=== PATIENT | female | born 1995 | race African-American/Black ===

== ENCOUNTER 2017-11-07 16:04 | Emergency (ER) | payer OTHER ==
[2017-11-07 16:10] VITALS: BP 121/67; PULSE 87; TEMP 98.9; BMI 34.9
--- NOTE | 2017-11-07 16:11 | PDOC ---
Rapid Medical Evaluation Chief Complaint: Headache Time Seen by Provider: 11/07/17 16:07 Medical Evaluation: 11/07/17 16:08 I have performed a brief in-person evaluation of this patient. The patient presents with a CC of: fever, MONTERO HPI: Pt is a 22 YO female who states that she woke up with a fever and MONTERO. 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 She describes it as a throb and rates it at a 6/10. Pertinent PE findings: Skin: Clear Heart:RRR Lungs: Clear MS: Moves all extremities without difficulty Neuro: alert and oriented Psych: Appropriate affect I have ordered the following: nothing ordered at this time. The patient will proceed to [facility] for further evaluation.
--- NOTE | 2017-11-07 16:52 | PDOC ---
History of Present Illness - General Chief Complaint: Headache Stated Complaint: HEADACHE Time Seen by Provider: 11/07/17 16:07 History Source: Patient Exam Limitations: No Limitations - History of Present Illness Initial Comments: 11/07/17 16:50 Came to ER for evaluation of upper respiratory infection. States son was recovering from coxsackie virus, and feels became ill due to his illness. Has had fevers, chills sore throat pain and upper respiratory congestion. Denies severe headache, but c/o frontal congestion 11/07/17 16:53 Timing/Duration: reports: other (2 days ) Severity: Yes: mild, moderate Associated Symptoms: reports: fever/chills Past History - Travel Traveled outside of the country in the last 30 days: No Close contact w/someone who was outside of country & ill: No - Past Medical History Allergies/Adverse Reactions: Allergies Allergy/AdvReac Type Severity Reaction Status Date / Time Sulfa (Sulfonamide Allergy Mild Hives Verified 11/07/17 16:10 Antibiotics) Home Medications: Ambulatory Orders NK [No Known Home Medication] 11/07/17 COPD: No - Suicide/Smoking/Psychosocial Hx Smoking History: Never smoked Have you smoked in the past 12 months: No Information on smoking cessation initiated: No Hx Alcohol Use: No Drug/Substance Use Hx: No Substance Use Type: None Review of Systems - Review of Systems Able to Perform ROS?: Yes Is the patient limited Norwegian proficient: Yes Constitutional: Yes: Symptoms Reported, See HPI, Fever, Malaise HEENTM: Yes: Symptoms Reported, See HPI, Nose Congestion Respiratory: Yes: Symptoms reported, See HPI, Cough Cardiac (ROS): No: Symptoms Reported : No: Symptoms Reported Integumentary: No: Symptoms Reported All Other Systems: Reviewed and Negative *Physical Exam - Vital Signs Last Vital Signs Temp Pulse Resp BP Pulse Ox 98.9 F 87 17 121/67 100 11/07/17 16:08 11/07/17 16:08 11/07/17 16:08 11/07/17 16:08 11/07/17 16:08 - Physical Exam General Appearance: Yes: Nourished, Appropriately Dressed, Apparent Distress HEENT: positive: LUIS, Normal ENT Inspection, TMs Normal, Pharynx Normal (mild erythema, but no ulcerations noted, some postnasal drainage), Nasal Congestion, Rhinorrhea, Sinus Tenderness Neck: positive: Supple. 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 NML intact, Fully Oriented, Alert, Normal Mood/ Affect, Normal Response, Motor Strength 5/5 Progress Note - Progress Note Progress Note: Upper respiratory infection, mild *DC/Admit/Observation/Transfer Diagnosis at time of Disposition: Upper respiratory infection, acute - Discharge Dispostion Disposition: HOME Condition at time of disposition: Stable Decision to Admit order: No - Referrals Referrals: Enedelia Caraballo [Primary Care Provider] - - Patient Instructions Printed Discharge Instructions: DI for Viral Upper Respiratory Infection -- Adult Additional Instructions: Rest, drink lots of fluids: Teas, water, soups, Pedialyte Saltwater gargles Steamy showers/seem to face break up mucus Avoid contact with others until fevers and cough resolved Lots of handwashing and good hygiene Continue [id number] medications for symptomatic relief Tylenol or Motrin for fever and pain Followup with private physician in one to 2 days as needed Return to emergency department for worsened symptoms, fevers, dehydration - Post Discharge Activity Forms/Work/School Notes: Back to Work
[2017-11-07] MEDS ORDERED: IBUPROFEN 400 MG TABLET (FP) PO ONE ×2 (16:57→17:01)
== END 2017-11-07 17:51 | disposition home or self-care (01) ==
LOC: JERFT 16:04
DX: J11.1 Influenza due to unidentified influenza virus with other respiratory manifestations (principal)
CPT/HCPCS: 84703; 99281-25

== ENCOUNTER 2018-06-24 19:57 | Emergency (ER) | payer OTHER ==
[2018-06-24 20:19] VITALS: BP 114/72; PULSE 70; TEMP 98.5; BMI 34.7
--- NOTE | 2018-06-24 20:54 | PDOC ---
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 Pt LMP 05/16/2018, has had irregular bleeding in between cycles, followed by OB and started on OCPs , after biopsy on 06/13 has had 2 vaginal bleeding . Vaginal bleeding continued and states today after removing a tampon she noted excessive discharge that was thick attached to the end of it. Pt also admits to bilateral lower quadrant crampy abdominal pain that began today. Denies hx STDs, vaginal pain/burning/ itching, changes in bowel or bladder habits, F/C/N/V. Past History - Past Medical History Allergies/Adverse Reactions: Allergies Allergy/AdvReac Type Severity Reaction Status Date / Time Sulfa (Sulfonamide Allergy Mild Hives Verified 11/07/17 16:10 Antibiotics) Home Medications: Ambulatory Orders NK [No Known Home Medication] 11/07/17 COPD: No Disorders: Yes (HPV w/ cervical bx 06/13/18) - Surgical History Abdominal Surgery: No Appendectomy: No Cardiac Surgery: No Cholecystectomy: No Gastric Stapling: No GI Surgery: No - Suicide/Smoking/Psychosocial Hx Smoking History: Never smoked Have you smoked in the past 12 months: No Information on smoking cessation initiated: No Hx Alcohol Use: No Drug/Substance Use Hx: No Substance Use Type: None Review of Systems - Review of Systems Constitutional: No: Chills, Fever, Weakness HEENTM: No: Blurred Vision, Double Vision Respiratory: No: Shortness of Breath, Wheezing Cardiac (ROS): No: Chest Pain ABD/GI: Yes: Abdominal cramping. No: Constipated, Diarrhea, Nausea, Vomiting : Yes: Discharge (vaginal ). No: Burning, Dysuria, Frequency, Flank Pain Musculoskeletal: No: Back Pain, Muscle Weakness Integumentary: No: Change in Color Neurological: No: Headache, Numbness, Paresthesia, Weakness *Physical Exam - Vital Signs Last Vital Signs Temp Pulse Resp BP Pulse Ox 98.5 F 70 20 114/72 100 06/24/18 20:12 06/24/18 20:12 06/24/18 20:12 06/24/18 20:12 06/24/18 20:12 - Physical Exam General Appearance: Yes: Nourished, Appropriately Dressed. No: Apparent Distress HEENT: positive: EOMI, LUIS Neck: positive: Supple. negative: Carotid bruit Respiratory/Chest: positive: Lungs Clear, Normal Breath Sounds. negative: Respiratory Distress, Crackles, Rales, Rhonchi, Stridor, Wheezing Cardiovascular: positive: Regular Rhythm, Regular Rate, S1, S2. negative: Edema , JVD, Murmur Vascular Pulses: Dorsalis-Pedis (R): 3+, Doralis-Pedis (L): 3+ Female Pelvic Exam: positive: normal external exam, cervical os closed, normal adnexa, normal size ovaries, discharge (bloody). negative: CMT, adnexal tenderness Gastrointestinal/Abdominal: positive: Flat, Soft, Tenderness (distractable bilateral lower quadrant). negative: Pulsatile Mass, Distended, Guarding, Rebound Musculoskeletal: positive: Normal Inspection. negative: CVA Tenderness Extremity: positive: Normal Capillary Refill, Normal Inspection, Normal Range of Motion, Pelvis Stable Integumentary: positive: Normal Color, Dry, Warm. negative: Cyanotic Neurologic: positive: Fully Oriented, Alert, Normal Mood/Affect ED Treatment Course - LABORATORY CBC & Chemistry Diagram: 06/24/18 21:06 06/24/18 21:06 Medical Decision Making - Medical Decision Making 06/24/18 22:02 Pt was told by [employer] Stephen to come to clinic tmr at 8 30 am for appointment and will also discuss HPV results. Pt comfortable, NAD, non toxic appearing CBC WNL, no anemia CMP WNL UA WNL Urine culture and gc/chlam pending, pt will receive call for ab values *DC/Admit/Observation/Transfer Diagnosis at time of Disposition: Vaginal bleeding - Discharge Dispostion Disposition: HOME Condition at time of disposition: Stable Decision to Admit order: No - Referrals - Patient Instructions Printed Discharge Instructions: DI for Vaginal Bleeding, DI for Vaginal Discharge Additional Instructions: Please see your OB Dr. Mitchell at 8 30 am tomorrow. Continue taking your oral contraceptives as prescribed. Return to the ER for new or concerning symptoms including but not limited to: high fevers, severe abdominal pain, prolonged vaginal bleeding, weakness or profound lethargy. Thank you - Post Discharge Activity Forms/Work/School Notes: Back to Work
[2018-06-24 21:12] LABS: BASO % 0.3 % (0-2.0); EOS % 1.7 % (0-4.5); HEMATOCRIT 37.8 % (32.4-45.2); HEMOGLOBIN 12.6 GM/dL (10.7-15.3); LYMPH % 35.9 % (8-40); MCH 29.5 pg (25.7-33.7); MCHC 33.2 g/dl (32.0-36.0); MEAN CELL VOLUME 88.8 fl (80-96); MEAN PLT VOLUME 9.2 fl (7.5-11.1); MONO % 8.8 % (3.8-10.2); NEUT % 53.3 % (42.8-82.8); PLATELET COUNT 218 K/MM3 (134-434); RBC 4.26 M/mm3 (3.60-5.2); RDW 14.4 % (11.6-15.6); WHITE BLOOD COUNT 6.2 K/mm3 (4.0-10.0)
[2018-06-24 21:39] LABS: ALBUMIN 3.3 g/dl (3.4-5.0); ALK PHOS 59 U/L (45-117); ANION GAP 6 MMOL/L (8-16); BILIRUBIN,TOTAL 0.2 mg/dL (0.2-1); BLOOD UREA NITROGEN 9 mg/dL (7-18); CALCIUM 8.6 mg/dL (8.5-10.1); CHLORIDE 107 mmol/L (98-107); CO2 26 mmol/L (21-32); CREATININE 0.8 mg/dL (0.55-1.3); GLUCOSE,RANDOM 85 mg/dL (74-106); POTASSIUM 3.8 mmol/L (3.5-5.1); SGOT/AST 13 U/L (15-37); SGPT/ALT 23 U/L (13-61); SODIUM 139 mmol/L (136-145); TOT PROT 6.7 g/dl (6.4-8.2)
[2018-06-24 21:51] LABS: EPI CELLS 5.1 /HPF (0-5/HPF); HCG,QUALITATIVE URINE Negative; URINE APPEARANCE CLEAR; URINE BACTERIA 154.5 /hpf (NEGATIVE); URINE BILIRUBIN NEGATIVE (NEGATIVE); URINE CASTS 6 /lpf (0-8); URINE COLOR YELLOW; URINE GLUCOSE (UA) NEGATIVE (NEGATIVE); URINE KETONE 2+ (NEGATIVE); URINE LEUK ESTERASE TRACE (NEGATIVE); URINE NITRITE NEGATIVE (NEGATIVE); URINE PROTEIN TRACE (NEGATIVE); URINE RBC 65 /hpf (0-4); URINE WBC 5 /hpf (0-5)
--- NOTE | 2018-06-24 22:35 | PDOC ---
Documentation entered by Mary Ann Ennis SCRIBE, acting as scribe for Julienne Blood MD. Julienne Blood MD: This documentation has been prepared by the Raymon lund Daisy, SCRIBE, under my direction and personally reviewed by me in its entirety. I confirm that the documentation accurately reflects all work, treatment, procedures, and medical decision making performed by me. Attending Attestation - Resident Resident Name: Malcolm Sánchez - ED Attending Attestation I have performed the following: I have examined & evaluated the patient, The case was reviewed & discussed with the resident, I agree w/resident's findings & plan - HPI HPI: 06/24/18 21:01 The patient is a 23 YOF with a PMH of ectopic years ago, which was treated surgically, who presents to the ER for vaginal bleeding since 06/13. LMP was in late April and reports having consistent vaginal bleeding since. 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 The PATTERN CHAIN MAKER SUPERVISOR also did a biopsy, which came back positive for HPV. Patient states the vaginal bleeding has been persistent and used a tampon today. She reports that when she removed the tampon, she noticed a large clot. She also admits to abdominal cramping. Denies N/V/D/C, or urinary symptoms. Allergies: Sulfa - Physicial Exam PE: 06/24/18 22:29 wnwd 23 yo female p/w vaginal bleeding head ncat neck supple lungs cta b/l cvs [id number] abd no rebound,no guarding skin warm and dry no cva tenderness pelvic - done by Dr Sánchez, small clot in vaginal vault neuro axox3,ambulatory - Medical Decision Making 06/24/18 21:21 Vaginal bleeding plan cbc ,preg test 06/24/18 22:32 negative test no anemia pt d/c home
== END 2018-06-24 22:31 | disposition home or self-care (01) ==
LOC: JER 19:57
DX: N93.8 Other specified abnormal uterine and vaginal bleeding (principal); A63.0 Anogenital (venereal) warts; Z22.4 Carrier of infections with a predominantly sexual mode of transmission
CPT/HCPCS: 36415; 80053; 81003; 84703; 85025; 87086; 87491; 87591; 99283-25

== ENCOUNTER 2019-01-29 19:28 | Emergency (ER) | payer OTHER ==
[2019-01-29 19:46] VITALS: BP 119/78; PULSE 74; TEMP 97.5; BMI 33.3
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
== END 2019-01-29 20:42 | disposition home or self-care (01) ==
LOC: JERFT 19:28
DX: M54.6 Pain in thoracic spine (principal); V43.52XA Car driver injured in collision with other type car in traffic accident, initial encounter; Y92.414 Local residential or business street as the place of occurrence of the external cause; Y93.89 Activity, other specified; Y99.8 Other external cause status; Z88.2 Allergy status to sulfonamides
CPT/HCPCS: 99281-25

== ENCOUNTER 2021-11-21 00:36 | Emergency (ER) | payer OTHER ==
[2021-11-21 00:54] VITALS: BP 124/88; PULSE 78; RESP 16; TEMP 98.6; BMI 32.9
[2021-11-21] MEDS ORDERED: ONDANSETRON 4 MG/2 ML VIAL IVPUSH ONE (01:13)
[2021-11-21] MEDS ORDERED: SODIUM CHLORIDE 0.9% 500 ML INFUS.BAG IV ONE (01:13)
[2021-11-21] MEDS ORDERED: FAMOTIDINE 20 MG/50 ML IVPB 20 MG/50 ML MG IVPB ONE ×2 (01:13→01:35)
[2021-11-21 01:16] LABS: PH,URINE >= 9.0 (5.0-8.0); URINE APPEARANCE CLEAR; URINE BILIRUBIN NEGATIVE (NEGATIVE); URINE COLOR YELLOW; URINE GLUCOSE (UA) NEGATIVE (NEGATIVE); URINE KETONE NEGATIVE (NEGATIVE); URINE LEUK ESTERASE NEGATIVE (NEGATIVE); URINE NITRITE NEGATIVE (NEGATIVE); URINE PROTEIN TRACE (NEGATIVE); URINE UROBILINOGEN 0.2 mg/dL (0.2-1.0)
[2021-11-21] MEDS ORDERED: ONDANSETRON 4 MG/2 ML VIAL ONE (01:35)
[2021-11-21 01:41] LABS: EOS % 0.7 % (0-4.5); HEMATOCRIT 39.2 % (32.4-45.2); HEMOGLOBIN 13.1 GM/dL (10.7-15.3); MCH 29.4 pg (25.7-33.7); MCHC 33.4 g/dl (32.0-36.0); MEAN CELL VOLUME 87.9 fl (80-96); MEAN PLT VOLUME 8.8 fl (7.5-11.1); MONO % 6.2 % (3.8-10.2); NEUT % 70.1 % (42.8-82.8); PLATELET COUNT 246 10^3/uL (134-434); RBC 4.46 M/mm3 (3.60-5.2); WHITE BLOOD COUNT 6.5 K/mm3 (4.0-10.0)
[2021-11-21 01:58] LABS: CHLORIDE 108 mmol/L (98-107); SODIUM 144 mmol/L (136-145)
[2021-11-21 02:00] LABS: ALBUMIN 3.8 g/dl (3.4-5.0); ANION GAP 6 MMOL/L (8-16); CALCIUM 9.4 mg/dL (8.5-10.1); CO2 30 mmol/L (21-32)
[2021-11-21 02:02] LABS: BLOOD UREA NITROGEN 7.8 mg/dL (7-18)
[2021-11-21 02:03] LABS: LIPASE 32 U/L (73-393)
[2021-11-21 02:04] LABS: CREATININE 0.9 mg/dL (0.55-1.3); SGOT/AST 29 U/L (15-37)
[2021-11-21 02:05] LABS: BILIRUBIN,TOTAL 0.3 mg/dL (0.2-1); TOT PROT 7.5 g/dl (6.4-8.2)
[2021-11-21 02:07] LABS: ALK PHOS 89 U/L (45-117)
[2021-11-21 02:30] LABS: GLUCOSE,RANDOM 114 mg/dL (74-106); SGPT/ALT 27 U/L (13-61)
== END 2021-11-21 02:30 | disposition home or self-care (01) ==
LOC: JER 00:36
PROC: 3E033GC Introduction of Other Therapeutic Substance into Peripheral Vein, Percutaneous Approach (ICD-10-PCS; principal; 2021-11-21)
PROC: 3E033GC Introduction of Other Therapeutic Substance into Peripheral Vein, Percutaneous Approach (ICD-10-PCS; 2021-11-21)
DX: R11.2 Nausea with vomiting, unspecified (principal)
CPT/HCPCS: 0241U-QW; 36415; 80053; 80307; 81003; 83690; 84703; 85025; 87086; 99284-25

== ENCOUNTER 2022-01-27 10:16 | Emergency (ER) | payer OTHER ==
[2022-01-27 10:42] VITALS: RESP 20; BMI 35.6
[2022-01-27] MEDS ORDERED: ACETAMINOPHEN 325 MG TABLET (FP) PO ONE (11:09)
[2022-01-27] MEDS ORDERED: KETOROLAC TROMETHAMINE 15 MG/ML VIAL IM ONE (11:09)
[2022-01-27] MEDS ORDERED: KETOROLAC TROMETHAMINE 15 MG/ML VIAL ONE (12:11)
[2022-01-27 13:05] VITALS: BP 113/58; PULSE 109
[2022-01-27 14:02] VITALS: TEMP 101.4
== END 2022-01-27 14:02 | disposition home or self-care (01) ==
LOC: JER 10:16
PROC: 3E0233Z Introduction of Anti-inflammatory into Muscle, Percutaneous Approach (ICD-10-PCS; principal; 2022-01-27)
DX: J09.X2 Influenza due to identified novel influenza A virus with other respiratory manifestations (principal); R50.9 Fever, unspecified; R05.1 Acute cough; R09.81 Nasal congestion
CPT/HCPCS: 0241U-QW; 99284-25

== ENCOUNTER 2023-01-27 22:05 | Emergency (ER) | payer OTHER ==
[2023-01-27 22:11] VITALS: BP 121/77; PULSE 98; RESP 18; TEMP 98.7; BMI 36.6
[2023-01-27] MEDS ORDERED: IBUPROFEN 100 MG/5 ML UNIT DOSE CUPS PO ONE (22:54)
[2023-01-27] MEDS ORDERED: LIDOCAINE VISCOUS 2% ORAL/TOP 15 ML UNIT-DOSE CUP MM ONE (22:54)
[2023-01-27] MEDS ORDERED: LIDOCAINE VISCOUS 2% ORAL/TOP 15 ML UNIT-DOSE CUP ONE (22:59)
[2023-01-27] MEDS ORDERED: IBUPROFEN 100 MG/5 ML UNIT DOSE CUPS ONE (22:59)
== END 2023-01-27 23:47 | disposition home or self-care (01) ==
LOC: JER 22:05
DX: R21 Rash and other nonspecific skin eruption (principal); B08.4 Enteroviral vesicular stomatitis with exanthem; L98.9 Disorder of the skin and subcutaneous tissue, unspecified
CPT/HCPCS: 99283-25

== ENCOUNTER 2023-01-30 16:26 | Emergency (ER) | payer OTHER ==
[2023-01-30 16:58] VITALS: BP 122/77; PULSE 109; RESP 18; TEMP 99.5; BMI 36.6
[2023-01-30] MEDS ORDERED: KETOROLAC TROMETHAMINE 30 MG/1 ML VIAL IM ONE (17:52)
[2023-01-30] MEDS ORDERED: KETOROLAC TROMETHAMINE 30 MG/1 ML VIAL ONE (17:57)
== END 2023-01-30 18:21 | disposition home or self-care (01) ==
LOC: JERFT 16:26
PROC: 3E0233Z Introduction of Anti-inflammatory into Muscle, Percutaneous Approach (ICD-10-PCS; principal; 2023-01-30)
DX: K13.79 Other lesions of oral mucosa (principal); K12.30 Oral mucositis (ulcerative), unspecified
CPT/HCPCS: 99284-25